=== PATIENT | female | born 1995 | race Two or more races ===

== ENCOUNTER 2021-09-11 22:48 | Emergency (ER) | payer MEDICAID, OTHER ==
[~2021-09-11] VITALS: Ht 162.6 cm; Wt 66.7 kg
[2021-09-11 23:26] LABS: Urine Bacteria NONE SEEN /hpf (None Seen); Urine Blood Negative /uL (Negative); Urine Specific Gravity 1.002 (1.001-1.035); Urine WBC 11 /hpf (0 - 5)
[2021-09-11 23:49] LABS: Basophils # (auto) 0.1 10 ^3/uL (0-0.2); Basophils % (auto) 1.3 % (0.0-2.0); Eosinophils # (auto) 0.1 10 ^3/uL (0-0.8); Eosinophils % (auto) 1.9 % (0.0-7.0); Hematocrit 42.3 % (36.0-46.0); Lymphocytes % (auto) 31.6 % (10.0-50.0); Mean Corpuscular Volume 81.6 fL (80.0-100.0); Monocytes # (auto) 0.3 10 ^3/uL (0-1.3); Monocytes % (auto) 4.8 % (0.0-12.0); Neutrophils # (auto) 3.9 10 ^3/uL (1.6-8.6); Neutrophils % (auto) 60.4 % (37.0-80.0); Nucleated Red Blood Cells % 0.3 %; Red Blood Cells 5.19 10^6/uL (4.0-5.20); Red Cell Distribution Width 17.9 % (11.8-14.3); White Blood Cell 6.4 10^3/uL (4.4-10.8)
[2021-09-12 00:12] LABS: Albumin 4.1 g/dL (3.4-5.0); BUN/Creatinine Ratio 10.9; Calcium 8.8 mg/dL (8.5-10.1); Potassium 3.9 mmol/L (3.5-5.1)
[2021-09-12 00:14] LABS: Bilirubin, Total 0.3 mg/dL (0.2-1.0)
[2021-09-12] MEDS ORDERED: IOHEXOL 300 MG/ML 100ML BOTTLE IJ ONE (04:17)
[2021-09-12 05:00] VITALS: BP 113/74
[2021-09-12] MEDS ORDERED: ONDA-144 PO (05:28)
== END 2021-09-12 05:45 | disposition home or self-care (01) ==
LOC: ER 22:52
DX: R11.2 Nausea with vomiting, unspecified (principal); Z88.1 Allergy status to other antibiotic agents
CPT/HCPCS: 36415; 74177; 80053; 81001; 82150; 83690; 84702; 85025; 99285; Q9967

== ENCOUNTER 2025-02-18 18:10 | Emergency (ER) | payer BC, MEDICAID ==
[~2025-02-18] VITALS: Ht 162.6 cm; Wt 80.0 kg
[~2025-02-18 18:10] MED LIST: BACDST PO; IBU600T PO; ONDA-144 PO
[2025-02-18 18:29] VITALS: BP 131/83; PULSE 104; RESP 16; TEMP 99; O2SAT 100
[2025-02-18 18:49] LABS: Hematocrit 45.7 % (41.0-53.0); Hemoglobin 16.2 g/dL (13.5-17.5); Mean Corpuscular Hemoglobin 32.1 pg (28.0-32.0); Mean Corpuscular Volume 90.6 fL (80.0-100.0); Nucleated Red Blood Cells % 0.0 %
[2025-02-18] MEDS: HYDROcodone-ACET 10/325MG TAB PO ONE (18:57)
[2025-02-18] MEDS: ONDANSETRON ODT 4 MG TAB PO ONE (19:01)
[2025-02-18] MEDS: ACETAMINOPHEN 325 MG TAB PO ONE (19:01)
--- NOTE | 2025-02-18 19:01 | ED.PDOC ---
GI ASSESSMENT HPI Comments 30-year-old male came to ER for abdominal pain. Patient has states for the past 2 days he has been having intermittent episodes of right upper quadrant abdominal pain, tight, worse with movements, radiating to his lower back. Denies any history of abdominal surgeries Chief Complaint: Abdominal Pain Time Seen by MD: 19:01 Reviewed Notes: Nurses Notes Allergies: Coded Allergies: Amoxicillin (Verified Allergy, Unknown, 09/12/21) Erythromycin (Verified Allergy, Unknown, 09/12/21) Home Meds Active Scripts Dicyclomine Hcl (BENTYL CAPSULE) 10 Mg Cp, 1 CAP PO Q6HPRN PRN, #100 CAP 3 Ref ills Prov:PEACE STOCKTON MD 02/18/25 Ondansetron HCl (Ondansetron Hydrochloride) 8 Mg Tab, 8 MG PO Q6HP PRN, #30 TAB Prov:PEACE STOCKTON MD 02/18/25 Sulfamethoxazole W/Trimethopri (Bactrim Ds Tablet) 1 Tab Tb, 1 TAB PO BID for 5 Days, #10 TAB Prov:SHA VELASQUEZ MD 09/15/23 Ibuprofen Micronized (MOTRIN TABLET) 600 Mg Tb, 600 MG PO TID PRN for 5 Days, #15 TAB *Black box warning-NSAIDS can increase risk of AL & hypertension, GI irritation, ulceration, bleed, perferation. Do not use post cardiac surgery. Use short duration/lowest effective dose. Prov:SHA VELASQUEZ MD 09/15/23 Ondansetron (Zofran) 4 Mg Tab, 4 MG PO BID PRN for 10 Days, #20 TAB Prov:ROSEY CELAYA MD 09/12/21 Information Source: Patient Mode of Arrival: Ambulatory Timing: Days Duration: Intermittent Quality: Other (Tight) Vomitus: None Stool: Normal Severity: Moderate Recent: None Recent Hx of: None Pain Location: RUQ Modifying Factors: Nothing Associated sign and symptoms: Abdominal Pain Past Medical History PAST MEDICAL HISTORY: Denies Surgical History: Denies all surgeries Family History Family History: Reviewed,noncontributory to illness Social History Smoker: Non-Smoker, Quit Less Than 1 Year Alcohol: Denies ETOH Use Drugs: Denies Drug Use Lives In: Home Constitutional: denies: chills, diaphoresis, fatigue, fever, malaise, sweats, weakness, others EENTM: denies: blurred vision, double vision, ear bleeding, ear discharge, ear drainage, ear pain, ear ringing, eye pain, eye redness, hearing loss, mouth pain, mouth swelling, nasal discharge, nose bleeding, nose congestion, nose pain, photophobia, tearing, throat pain, throat swelling, voice changes, others Respiratory: denies: cough, hemoptysis, orthopnea, SOB at rest, shortness of breath, SOB with excertion, stridor, wheezing, others Cardiovascular: denies: chest pain, dizzy spells, diaphoresis, Dyspnea on exertion, edema, irregular heart beat, left arm pain, lightheadedness, palpitations, PND, syncope, others Gastrointestinal: reports: abdominal pain (Right upper quadrant); denies: abdomen distended, blood streaked bowels, constipated, diarrhea, dysphagia, difficulty swallowing, hematemesis, melena, nausea, poor appetite, poor fluid intake, rectal bleeding, rectal pain, vomiting, others Genitourinary: denies: burning, dysuria, flank pain, frequency, hematuria, incontinence, penile discharge, penile sore, pain, testicle pain, testicle swelling, urgency, others Neurological: denies: dizziness, fainting, headache, left sided numbness, left sided weakness, numbness, paresthesia, pre-existing deficit, right sided numbness, right sided weakness, seizure, speech problems, tingling, tremors, weakness, others Musculoskeletal: denies: back pain, gout, joint pain, joint swelling, muscle pain, muscle stiffness, neck pain, others Integumetry: denies: bruises, change in color, change in hair/nails, dryness, laceration, lesions, lumps, rash, wounds, others Allergic/Immunocompromised: denies: Difficulty Healing, Frequent Infections, Hives, Itching, others Hematologic/Lymphatic: denies: anemia, blood clots, easy bleeding, easy bruising, swollen glands, others Endocrine: denies: excessive hunger, excessive sweating, excessive thirst, excessive urination, flushing, intolerance to cold, intolerance to heat, unexplained weight gain, unexplained weight loss, others Psychiatric: denies: anxiety, bipolar disorder, depression, hopeless, panic disorder, schizophrenia, sleepless, suicidal, others Physical Exam General Appearance: No Apparent Distress, Normal HEENT: Normal ENT Inspection, Pharynx Normal, TMs Normal Neck: Full Range of Motion, Non-Tender, Normal, Normal Inspection Respiratory: Chest Non-Tender, Lungs Clear, No Accessory Muscle Use, No Respiratory Distress, Normal Breath Sounds Cardiovascular: No Edema, No JVD, No Murmur, No Gallop, Normal Peripheral Pulses, Regular Rate/Rhythm Breast Exam: Deferred Gastrointestinal: No Organomegaly, No Pulsatile Mass, Normal Bowel Sounds, RUQ, Soft, Tenderness Genitalia: Deferred Pelvic: Deferred Rectal: Deferred Extremities: No calf tenderness, Normal capillary refill, Normal inspection, Normal range of motion, Non-tender, No pedal edema Musculoskeletal : Apperance: Normal Neurologic: Alert, mba intern II-XII nml as Tested, No Motor Deficits, Normal Affect, Normal Mood, No Sensory Deficits Cerebellar Function: Normal Reflexes: Normal Skin: Dry, Normal Color, Warm Lymphatic: No Adenopathy Was a procedure done? Was a procedure done?: No GI differential Dx Differential Diagnosis: Appendicitis, Cholecystitis, Constipation, Diverticular disease, Gastritis/PUD, Gastroenteritis, GI hemorrhage, Hepatitis, Pancreatitis, UTI, Urolithiasis X-Ray, Labs, Meds, VS Vital Signs Date Time Temp Pulse Resp B/P (MAP) Pulse Ox O2 Delivery O2 Flow Rate FiO2 02/18/25 18:29 99.0 104 16 131/83 100 99.0 Lab Test 02/18/25 18:39 Range/Units White Blood Count 10.7 4.4-10.8 10^3/uL Red Blood Count 5.04 4.5-5.90 10^6/uL Hemoglobin 16.2 13.5-17.5 g/dL Hematocrit 45.7 41.0-53.0 % Mean Corpuscular Volume 90.6 80.0-100.0 fL Mean Corpuscular Hemoglobin 32.1 H 28.0-32.0 pg Mean Corpuscular Hemoglobin Concent 35.5 32.0-36.0 g/dL Red Cell Distribution Width 13.4 11.8-14.3 % Platelet Count 195 140-450 10^3/uL Mean Platelet Volume 8.8 6.9-10.8 fL Neutrophils (%) (Auto) 76.8 37.0-80.0 % Lymphocytes (%) (Auto) 15.7 10.0-50.0 % Monocytes (%) (Auto) 6.9 0.0-12.0 % Eosinophils (%) (Auto) 0.3 0.0-7.0 % Basophils (%) (Auto) 0.3 0.0-2.0 % Neutrophils # (Auto) 8.2 1.6-8.6 10 ^3/uL Lymphocytes # (Auto) 1.7 0.4-5.4 10 ^3/uL Monocytes # (Auto) 0.7 0-1.3 10 ^3/uL Eosinophils # (Auto) 0 0-0.8 10 ^3/uL Basophils # (Auto) 0 0-0.2 10 ^3/uL Nucleated Red Blood Cells 0.0 % Sodium Level 136 136-145 mmol/L Potassium Level 3.6 3.5-5.1 mmol/L Chloride Level 100 98-107 mmol/L Carbon Dioxide Level 28 20-31 mmol/L Anion Gap 8 5-15 Blood Urea Nitrogen 6 L 9-23 mg/dL Creatinine 0.98 0.700-1.30 mg/dL Glomerular Filtration Rate Calc 107 >90 mL/min BUN/Creatinine Ratio 6.1 L 10.0-20.0 Serum Glucose 154 H 74-106 mg/dL Calcium Level 9.1 8.7-10.4 mg/dL Total Bilirubin 0.9 0.2-1.0 mg/dL Aspartate Amino Transferase (AST) 15 13-40 U/L Alanine Aminotransferase (ALT) 15 7-40 U/L Alkaline Phosphatase 68 46-116 U/L Total Protein 7.8 5.7-8.2 g/dL Albumin 4.7 3.2-4.8 g/dL Lipase 48 12-53 U/L Current Medications Medications (Trade) Dose Ordered Sig/Satnam Route Start Time Stop Time Status Last Admin Ondansetron HCl (Zofran Po) 4 mg ONCE ONCE PO 02/18/25 19:00 02/18/25 19:01 DC 02/18/25 19:01 Acetaminophen (Tylenol Tablet) 650 mg ONCE ONCE PO 02/18/25 19:00 02/18/25 19:01 DC 02/18/25 19:01 Time of 1ST Reevaluation: 18:59 Reevaluation 1ST: Unchanged Patient Education/Counseling: Diagnosis, Treatment Family Education/Counseling: No Family Present SEPSIS Sepsis Screen Date sepsis recognized/suspect: Feb 18, 2025 Time Sepsis recognized/suspect: 1814 Recent Procedure: No On Antibiotic Therapy: No Respiratory Rate >20: No Heart Rate >90: Yes Temp<36 C (96.8 F) or >38.3 C: No SBP <90 or MAP <65 mmHG: No New Acute Mental Status Change: No Is the patient on CPAP, BIPAP,: No Physician Orders Urinalysis (02/18/25 18:28) Test, Urine (02/18/25 18:28) Gallbladder (02/18/25 18:51) Ct Ab Pel Wo Con-No Oral Or Iv (02/18/25 19:55) Vital Signs Date Time Temp Pulse Resp B/P (MAP) Pulse Ox O2 Delivery O2 Flow Rate FiO2 02/18/25 18:29 99.0 104 16 131/83 100 99.0 Laboratory Tests Test 02/18/25 18:39 White Blood Count 10.7 10^3/uL (4.4-10.8) Medications Medications Dose Ordered Sig/Satnam Route Start Time Stop Time Status Last Admin Dose Admin Acetaminophen 650 mg ONCE ONCE PO 02/18/25 19:00 02/18/25 19:01 DC 02/18/25 19:01 Ondansetron HCl 4 mg ONCE ONCE PO 02/18/25 19:00 02/18/25 19:01 DC 02/18/25 19:01 Departure 1 Departure Time of Disposition: 21:00 Impression: Primary Impression: Right sided abdominal pain Additional Impression: Nausea & vomiting Disposition: 01 HOME / SELF CARE / HOMELESS Condition: Stable e-Prescriptions Dicyclomine Hcl (BENTYL CAPSULE) 10 Mg Cp 1 CAP PO Q6HPRN PRN, #100 CAP 3 Refills Prov: PEACE STOCKTON MD 02/18/25 Ondansetron HCl (Ondansetron Hydrochloride) 8 Mg Tab 8 MG PO Q6HP PRN, #30 TAB Prov: PEACE STOCKTON MD 02/18/25 Discharged With: Self Critical Care Note Critical Care Time?: No Stability Stability form required: No Heart Score Heart Score: Heart Score Response (Comments) Value History N/A 0 EKG N/A 0 Age N/A 0 Risk Factors N/A 0 Troponin N/A 0 Total 0 I personally scribed for PEACE STOCKTON MD ([email or web address]) on 02/18/25 at 19:01. Electronically submitted by Mac Powell ([email or web address]). PEACE STOCKTON MD Feb 18, 2025 19:01
[2025-02-18 19:10] LABS: Alanine Aminotransferase 15 U/L (7-40); Albumin 4.7 g/dL (3.2-4.8); Alkaline Phosphatase 68 U/L (46-116); Anion Gap 8 (5-15); BUN/Creatinine Ratio 6.1 (10.0-20.0); Bilirubin, Total 0.9 mg/dL (0.2-1.0); Calcium 9.1 mg/dL (8.7-10.4); Carbon Dioxide 28 mmol/L (20-31); Chloride 100 mmol/L (98-107); Lipase 48 U/L (12-53); Potassium 3.6 mmol/L (3.5-5.1); Sodium 136 mmol/L (136-145); Total Protein 7.8 g/dL (5.7-8.2)
[2025-02-18 19:11] LABS: Blood Urea Nitrogen 6 mg/dL (9-23); Glucose 154 mg/dL (74-106)
--- NOTE | 2025-02-18 19:33 | DVH ---
STUDY: US GALLBLADDER TECHNIQUE: RUQ ultrasound was obtained using standard technique with Doppler. INDICATIONS: RUQ pain FINDINGS: PANCREAS: Normal in size and echogenicity. Tail of pancreas is not well seen. LIVER: Normal size and echotexture. No mass. GALLBLADDER: No gallstones. Negative willett sign. no gallbladder wall thickening or pericholecystic f luid. COMMON BILE DUCT: Normal in caliber. RIGHT KIDNEY: Normal in size and echogenicity. No mass. No urinary stones. No hydronephrosis. IMPRESSION: 1. No acute cholecystitis.
--- NOTE | 2025-02-18 21:03 | DVH ---
Exam: CT CT AB PEL WO CON-NO ORAL OR IV History: right flank pain Comparison Study: None TECHNIQUE: Multidetector CT of the abdomen AND PELVIS without IV contrast. Axial, coronal and sagitta l multiplanar reformats were obtained from the axial data set by the technologist. Radiation Dose Information: CT Dose: CTDI volume is 9.95 mGy. Dose-length product is 517.2 mGy*cm FINDINGS: Bibasilar atelectasis. Partially visualized heart is unremarkable. Mild hepatomegaly. Otherwise, liver, spleen, gallbladder, pancreas and adrenal glands unremarkable. Kidneys and ureters unremarkable. Mild wall thickening of the Urinary bladder which is most likely fr om inadequate distention. Uterus and adnexa unremarkable. Phleboliths noted within the pelvis. Stomach is unremarkable. Mild wall Thickening of proximal small bowel loops. The remainder of the sm all bowel loops unremarkable. Appendix is unremarkable. Small to moderate amount of fecal material wi thin the colon. No evidence of intraperitoneal free air or free fluid. No evidence of aortic aneurysm. No significant lymphadenopathy. Tiny fat containing umbilical hernia. The soft tissues unremarkable. No evidence of acute osseous ab normalities. Sclerotic focus of the left proximal femur which may represent a bone island. IMPRESSION: Bilateral kidneys are unremarkable. Mild wall thickening of the urinary bladder which is most likely from inadequate distention. Correla tion with urinalysis is recommended to exclude cystitis. Mild wall thickening of proximal small bowel loops which may be due to inadequate distention/mild ent eritis.
[2025-02-18] MEDS ORDERED: ONDA-180 PO (21:23)
[2025-02-18] MEDS ORDERED: DICY10CA PO (21:24)
== END 2025-02-18 22:14 | disposition home or self-care (01) ==
LOC: ER 18:14
DX: R10.11 Right upper quadrant pain (principal); Z88.0 Allergy status to penicillin; Z88.1 Allergy status to other antibiotic agents
CPT/HCPCS: 36415; 74176; 76705; 80053; 83690; 85025; 99284; Q0162